=== PATIENT | male | born 1955 | race Caucasian/White ===

== ENCOUNTER 2022-08-24 19:05 | Emergency (ER) | payer OTHER ==
[2022-08-24] MEDS ORDERED: Lidocaine 1% 5 ML VIAL INJECT ONE (19:16)
== END 2022-08-24 19:39 | disposition home or self-care (01) ==
LOC: VM.ED 19:05
DX: S01.81XA Laceration without foreign body of other part of head, initial encounter (principal); E78.00 Pure hypercholesterolemia, unspecified; F17.210 Nicotine dependence, cigarettes, uncomplicated; Z88.2 Allergy status to sulfonamides; Z79.899 Other long term (current) drug therapy; W22.8XXA Striking against or struck by other objects, initial encounter
CPT/HCPCS: 12011; 99282